=== PATIENT | male | born 1950 | race Caucasian/White ===

== ENCOUNTER → 2018-09-04 | Outpatient (CLI) | payer MEDICARE, OTHER ==
--- NOTE | 2018-09-04 20:38 | Diagnostic Imaging Report ---
Solid-phase gastric emptying study Reason for examination: Dysphagia; diverticulitis; unintentional weight loss. The protocol used for this study is based on the Consensus Recommendations for Gastric Scintigraphy by the [employer] and the Society of [employer]. Clinical information: The patient is diabetic; blood sugar this morning was 237 mg/dL. The patient has not had previous gastrointestinal surgery. The patient is not on any medications expected to affect gastric motility. The patient has been fasting for at least 6 hours prior to this exam except for a cup of black coffee almost 3 hours prior to the test. Radiopharmaceutical: Tc-99m sulfur colloid 1 mCi Report: The radiopharmaceutical was added to 1/2 cup egg whites that were then prepared and served with 2 pieces of white bread toasted, 30 grams of jam and 4 ounces of water. The patient took the meal orally without difficulty. Images were obtained of the abdomen in the anterior and posterior projections at 10 minutes post the meal and at 1, 2, 3, and 4 hours. Uptake was determined from the geometric mean of the anterior and posterior counts and the counts were corrected for decay of the radiolabel. The percent gastric retention of the labeled meal at: 1 hour was 70% (normal 30-90%) 2 hours was 50% (normal <60%) 3 hours was 40% (normal <30%) 4 hours was 17% (normal <10%) Impression: Prolonged rate of gastric emptying. Scan findings support the clinical diagnosis of gastroparesis. The most sensitive biomarker for gastroparesis is gastric retention of greater than 10% of the radiolabeled meal at 4 hours, which this patient has. Elevated blood glucose level at the time of the exam may also prolong gastric emptying. Signed by: Dr. Catrachita Alamo M.D. on 09/04/2018 8:34 PM
== END ==
LOC: NM 08:39
PROVIDERS: ATTEND Internal Medicine Gastroenterology
DX: K59.00 Constipation, unspecified (principal); R63.4 Abnormal weight loss
CPT/HCPCS: 78264; A9541

== ENCOUNTER → 2021-02-13 | Outpatient (CLI) | payer MEDICARE | LOC: DX 11:03 | PROVIDERS: ATTEND Internal Medicine Gastroenterology | DX: K59.00 Constipation, unspecified (principal); R93.89 Abnormal findings on diagnostic imaging of other specified body structures; I10 Essential (primary) hypertension; E11.9 Type 2 diabetes mellitus without complications; F17.200 Nicotine dependence, unspecified, uncomplicated | CPT/HCPCS: 74246; 74250; U0002 ==